=== PATIENT | male | born 1975 | race Two or more races ===

== ENCOUNTER → 2022-02-05 | Outpatient (CLI) | payer OTHER ==
[2016-02-28 16:45] VITALS: BP 120/73
--- NOTE | 2022-02-05 17:21 | KCIC ---
RS Compliance Statement: One or more of the following individualized dose reduction techniques were utilized for this examinat ion: 1. Automated exposure control 2. Adjustment of the mA and/or kV according to patient size 3. Use of iterative reconstruction technique Coronary calcium score CT chest without contrast History: Family history of CAD, hypertension, hypercholesterolemia. Technique: With retrospective electrocardiogram gating axial reconstructed noncontrast images of the chest at the level of the coronary arteries was performed. Images were post processed on workstation and calcium score calculated using the modified Agatston Janowitz protocol. Findings: Total coronary calcium score is 0. This is a no identifiable plaque burden and low cardiova scular disease risk. This is based on the calcium score of 0 of the left main coronary artery, score of 0 of the left anterior descending artery, score of 0 of the left circumflex artery and score of 0 of the right coronary artery. Noncoronary findings demonstrate normal caliber great vessels. Cardiac size normal, no pericardial ef fusion. Question mild fatty infiltration of the visualized liver. No pleural abnormality. Central air ways are patent. Visualized lungs are clear. IMPRESSION: 1. Patient's total calcium score is 0. 2. Probable fatty infiltration of the liver. Electronically signed by: Ciaran Lamb MD (02/05/2022 5:18 PM) [id number]
== END ==
LOC: KCIC CT 15:15
PROVIDERS: ATTEND Nurse Practitioner
DX: Z13.6 Encounter for screening for cardiovascular disorders (principal); E78.5 Hyperlipidemia, unspecified; Z82.49 Family history of ischemic heart disease and other diseases of the circulatory system
CPT/HCPCS: 75571